=== PATIENT | female | born 1970 | race Caucasian/White ===

== ENCOUNTER 2019-07-15 19:32 | Emergency (ER) | payer SELFPAY ==
--- NOTE | 2019-07-15 20:33 | RAD ---
PORTABLE CHEST: 07/15/19 HISTORY: Chest pain. Heart size is within normal limits for portable technique. Slightly increased parenchymal density in the left lung is probably just overlying soft tissue. If there is any reason to suspect any infiltra te, a PA and lateral chest film may be helpful in assessment. IMPRESSION: Minimally increased markings over the left mid lung field. I suspect that this is just overlying soft tissue. Less likely some early infiltrative lung change. Clinical correlation recommended. POS: SAMANHTA
[2019-07-15 20:50] LABS: #Basophils 0.1 thou/uL (0.0-0.2); #Eosinphils 0.3 thou/uL (0.0-0.7); #Monocytes 0.5 thou/uL (0.11-0.59); %Basophils 0.7 % (0.0-1.0); %Eosinophils 3.2 % (0.0-10.0); %Lymphocytes 20.1 % (21.0-51.0); %Monocytes 5.3 % (0.0-10.0); %Neutrophils 70.7 % (42.0-75.0); Hemoglobin 13.4 g/dL (12.0-16.0); Mean Corpuscular HGB CONC 32.3 g/dL (32.0-36.0); Mean Corpuscular Hemoglobin 26.6 pg (27.0-31.0); Mean Corpuscular Volume 82.2 fL (78.0-98.0); Platelet Count 325 thou/uL (130-400); RBC Distribution Width 14.2 % (11.5-14.5); Red Blood Cell (RBC) Count 5.06 mill/uL (4.20-5.40); White Blood Cell (WBC) Count 9.9 thou/uL (4.8-10.8)
[2019-07-15 21:11] LABS: ALT (SGPT) 19 U/L (8-55); AST (SGOT) 34 U/L (5-34); Albumin 3.7 g/dL (3.5-5.0); Alkaline Phosphatase 71 U/L (40-110); Anion Gap 13 mmol/L (10-20); BUN (Urea Nitrogen) 10 mg/dL (7.0-18.7); Bilirubin, Total 0.5 mg/dL (0.2-1.2); Calc. Creatinine Clearance 0 mL/min (70-130); Calcium 9.1 mg/dL (7.8-10.44); Carbon Dioxide 28 mmol/L (22-29); Chloride 101 mmol/L (98-107); Estimated GFR-MDRD Greater than 90; Globulin 4.5 g/dL (2.4-3.5); Glucose 171 mg/dL (70-105); Potassium 4.7 mmol/L (3.5-5.1); Protein, Total 8.2 g/dL (6.0-8.3); Sodium 137 mmol/L (136-145)
[2019-07-15 22:04] LABS: Free T4 (Free Thyroxine) 1.11 ng/dL (0.70-1.48); Thyroid Stimulating Hormone 0.8982 uIU/mL (0.35-4.94)
[2019-07-15] MEDS ORDERED: Ondansetron PF 4 MG/2 ML Vial ONE (22:12)
[2019-07-15] MEDS ORDERED: Ketorolac Tromethamine 30 MG/ML VIAL ONE (22:33)
[2019-07-15] MEDS ORDERED: Acetaminophen 500 MG TAB ONE (22:33)
== END 2019-07-15 23:25 ==
LOC: ERS 19:32
DX: M54.2 Cervicalgia (principal); R11.0 Nausea; E11.9 Type 2 diabetes mellitus without complications; I10 Essential (primary) hypertension; M79.7 Fibromyalgia; M19.90 Unspecified osteoarthritis, unspecified site; M06.9 Rheumatoid arthritis, unspecified; G43.909 Migraine, unspecified, not intractable, without status migrainosus; J45.909 Unspecified asthma, uncomplicated; F32.9 Major depressive disorder, single episode, unspecified; Z79.4 Long term (current) use of insulin
CPT/HCPCS: 71045; 80053; 83735; 84439; 84443; 84484; 85025; 93005; 96361; 96374; 96375; J1885; J2405

== ENCOUNTER 2019-08-16 01:25 | Observation (INO) | payer MEDICAID ==
[2019-08-16] MEDS ORDERED: Aspirin Chewable 81 MG TAB ONE (03:01)
[2019-08-16] MEDS ORDERED: Ondansetron PF 4 MG/2 ML Vial IVP PRN (16:14)
[2019-08-16] MEDS ORDERED: Ondansetron ODT 4 MG TAB SL PRN (16:14)
[2019-08-16] MEDS ORDERED: Acetaminophen 325 MG TAB PO PRN (16:14)
[2019-08-16] MEDS ORDERED: Sodium Chloride 0.9% 1,000 ML IV SCH ×2 (16:14→20:30)
[2019-08-16] MEDS ORDERED: HYDROcodone/Acetaminophen 5/325 mg Tablet PO PRN ×2 (16:14)
[2019-08-16] MEDS ORDERED: Heparin 5,000 UNITS/ML VIAL SC SCH (16:30)
[2019-08-16] MEDS ORDERED: Piperacillin/Tazobactam 4.5 GM in Sodium Chloride 0.9% 100 ML IVPB SCH (18:00)
[2019-08-16] MEDS: Sodium Chloride 0.9% 1,000 ML IV SCH (18:12)
[2019-08-16 18:17] VITALS: BMI 44.4
[2019-08-16] MEDS ORDERED: METFORMIN HCL PO SCH (21:00)
[2019-08-16] MEDS: Heparin 5,000 UNITS/ML VIAL SC SCH (21:21)
[2019-08-16] MEDS: Gabapentin 300 MG CAP PO SCH (21:22)
[2019-08-16] MEDS: Acetaminophen 500 MG TAB PO PRN (21:23)
[2019-08-16] MEDS: MEROPENEM 1 GM/50 ML 1 GM in Premix Bag 1 BAG IVPB SCH (21:23)
[2019-08-16] MEDS: Senokot S 8.6-50 MG TAB PO SCH (21:24)
[2019-08-17 04:50] LABS: #Basophils 0.1 thou/uL (0.0-0.2); #Eosinphils 0.3 thou/uL (0.0-0.7); #Lymphocytes 1.8 thou/uL (1.20-3.40); #Monocytes 0.4 thou/uL (0.11-0.59); %Eosinophils 4.5 % (0.0-10.0); %Lymphocytes 28.1 % (21.0-51.0); %Neutrophils 60.4 % (42.0-75.0); Hemoglobin 12.1 g/dL (12.0-16.0); Mean Corpuscular HGB CONC 31.4 g/dL (32.0-36.0); Mean Corpuscular Hemoglobin 26.2 pg (27.0-31.0); Mean Corpuscular Volume 83.7 fL (78.0-98.0); Mean Platelet Volume 7.5 fL (7.4-10.4); Platelet Count 299 thou/uL (130-400); RBC Distribution Width 14.3 % (11.5-14.5); White Blood Cell (WBC) Count 6.5 thou/uL (4.8-10.8)
[2019-08-17 05:07] LABS: Anion Gap 10 mmol/L (10-20); BUN (Urea Nitrogen) 7 mg/dL (7.0-18.7); Calc. Creatinine Clearance 258 mL/min (70-130); Calcium 8.6 mg/dL (7.8-10.44); Carbon Dioxide 25 mmol/L (22-29); Chloride 104 mmol/L (98-107); Estimated GFR-MDRD Greater than 90; Glucose 166 mg/dL (70-105); Potassium 4.2 mmol/L (3.5-5.1); Sodium 135 mmol/L (136-145)
[2019-08-17] MEDS: MEROPENEM 1 GM/50 ML 1 GM in Premix Bag 1 BAG IVPB SCH ×2 (07:50→14:57)
[2019-08-17] MEDS: Acetaminophen 500 MG TAB PO PRN ×2 (07:52→17:01)
[2019-08-17] MEDS ORDERED: Labetalol HCl 100 MG/20 ML VIAL SLOW IVP PRN (07:57)
[2019-08-17] MEDS: Sodium Chloride 0.9% 1,000 ML IV SCH (08:27)
--- NOTE | 2019-08-17 08:30 | HP ---
HISTORY OF PRESENT ILLNESS: Ms. Noble is a 49-year-old long-term resident with a history of type 2 diabetes, thyroid goiter, hypertension, rheumatoid arthritis, regina syndrome and Scheuermann disease, presented to the hospital for generalized weakness for the past day. Per the patient, she was trying to get off bed in the long-term, but could not move either of her extremities and could barely talk, and the symptoms have resolved only after arriving to the ER and only partially resolved. she could talk again, but her extremities remained weak. The patient also endorsed fever, chills, night sweats for the past week. She denied weight loss, neck stiffness, sinus congestion, throat pain, chest pain, pleuritic pain, shortness of breath, abdominal pain, diarrhea, dysuria, burning on urination, increased urinary frequency, focal weakness, facial droop, blood loss, recent travel, or proximity to sick contacts. EMERGENCY COURSE: In the ED, the patient was found to have a positive urinalysis and be hypotensive. The patient's sensory exam was diffuse weakness, and she was admitted to the stroke unit. PAST MEDICAL HISTORY: regina syndrome, Scheuermann disease, goiter, type 2 diabetes, recurrent urinary tract infections, hypertension, osteoarthritis, fibromyalgia, rheumatoid arthritis, migraines. PAST SURGICAL HISTORY: Cholecystectomy, thyroidectomy that was partial. PSYCHIATRIC HISTORY: Depression. SOCIAL HISTORY: No alcohol, smoking, or recreational drug use. Lives in long- term long-term, [facility]. FAMILY HISTORY: Remarkable for hypertension, diabetes. ALLERGIES: INCLUDE ALLERGY TO PENICILLIN, WHICH THE PATIENT DESCRIBES HER JAW LOCKING UP, MEPERIDINE, MORPHINE, AND TRAMADOL. HOME MEDICATIONS: Include, 1. Duloxetine. 2. Pantoprazole. 3. Acetaminophen. 4. Loperamide. 5. DuoNeb. 6. Diclofenac. 7. Insulin aspart. 8. Gabapentin. 9. Metformin. 10. Glyburide. REVIEW OF SYSTEMS: GENERAL: No weight loss. No difficulty sleeping. Positive for fatigue that is chronic, diffuse weakness, chills, and night sweats. SKIN: Denies any rashes, itching, or dryness. HEAD: Denies current headaches. EARS: Denies drainage. EYES: Denies redness or drainage. NOSE: No stuffiness. No sinus pain. THROAT: Endorses swelling of the throat. Denies recent bleeding or tooth ache. NECK: Endorses swelling of the throat. No stiffness. No lumps. RESPIRATORY: Denies cough, sputum production, or shortness of breath. Denies pleuritic chest pain. CARDIOVASCULAR: Denies chest pressure, palpitations, worsening lower or upper extremity swelling. GASTROINTESTINAL: Endorses mild swallowing difficulties. Denies heartburn, constipation, diarrhea, or rectal bleeding. URINARY: Denies increased frequency, urgency, burning, pain, or blood in the urine. NEUROLOGIC: Endorses diffuse weakness and numbness; however, cannot localize. HEMATOLOGIC: No recent bleeding. No easy bleeding. PSYCHIATRIC: Endorses nervousness and depression. PHYSICAL EXAMINATION: VITAL SIGNS: Unremarkable with exception of hypertension. GENERAL: Morbidly obese. Lying in bed in mild distress due to weakness. HEENT: Left submandibular lymphadenopathy as well as diffusely enlarged nontender goiter. No other head or neck lymphadenopathy. THROAT: Not erythematous or draining pus. CARDIAC: Regular rate and rhythm. No murmurs. No gallops. LUNGS: Clear to auscultation bilaterally. No rales, wheezing, or rhonchi; however, diffusely reduced breath sounds throughout, likely due to body habitus. ABDOMEN: Nontender, nondistended. Normal bowel sounds. EXTREMITIES: Mild bilateral lower extremity edema up to knee level. PSYCHIATRIC: Appears moderately anxious. Alert and oriented x3. LABORATORY AND DIAGNOSTIC DATA: Labs and imaging were reviewed by me. ASSESSMENT AND PLAN: Ms. Noble is a 49-year-old female with a medical history of recurrent urinary tract infections, who presents with disuse weakness, fever , and chills due to complicated urinary tract infection. 1. Complicated urinary tract infection. 2. qSOFA score is 0/3. Therefore, not septic. 3. Urinalysis positive. 4. Cultures are pending. 5. Chest x-ray shows no acute cardiopulmonary process. 6. Considering the nonfocal nature of the weakness and subacute presentation, unlikely to be related to a stroke. In addition to that imaging in the hospital for which the patient came including CT angiography showed no hemodynamic significant stenosis nor signs of acute ischemia. However, the imaging showed a mediastinal mass as well as diffuse thyromegaly. however, findings did show soft tissue density in the mediastinum, likely representing mediastinal lymphadenopathy and diffuse enlarged thyroid gland. PLAN: 1. The patient was placed in a Damon due to urinary retention on presentation. a. Considering the patient is from a long-term and with recurrent urinary tract infections, she is at high risk for extended-spectrum beta-lactamase urinary tract infection. Despite her reported penicillin allergy, which appears to be unrelated to angioedema, we will start the patient continues on meropenem and monitor closely for signs of allergies. b. Upon receiving urine culture susceptibilities, we will change the antibiotics to suit susceptibilities. c. In addition to that, we will send for a respiratory viral panel. 2. Thyromegaly. a. On physical exam, diffusely enlarged thyroid, which the patient endorses has been a chronic issue. Nontender. b. Most recent thyroid studies show normal levels of TSH and free T4. c. Plan, we will attempt to obtain records regarding thyroid disease prior to proceeding with additional studies. 3. Mediastinal masses. a. Prior imaging report, likely lymphadenopathy. b. Plan, we will attempt to obtain older imaging records prior to additional workup of the mass. 4. Type 2 diabetes. a. The patient is taking metformin, glyburide, and insulin at home. b. We will renew home medications and monitor. 5. Depression. a. We will continue home antidepression medication. 6. Disposition and prophylaxis. a. Resuscitation status, full code. b. DVT prophylaxis. Heparin 5000 units q.8 subcutaneously. c. GI prophylaxis. The patient is being treated for GERD with pantoprazole. Job ID: [id number] MTDD
[2019-08-17] MEDS: DULoxetine 60 MG CAP PO SCH (09:16)
[2019-08-17] MEDS: Heparin 5,000 UNITS/ML VIAL SC SCH ×3 (09:16→21:48)
[2019-08-17] MEDS: Gabapentin 300 MG CAP PO SCH ×3 (09:17→21:48)
[2019-08-17] MEDS: Senokot S 8.6-50 MG TAB PO SCH ×3 (09:17→21:49)
[2019-08-17] MEDS: Amlodipine 10 MG TAB PO SCH (09:18)
[2019-08-17] MEDS: glyBURIDE 5 MG TAB PO SCH (09:22)
[2019-08-17] MEDS ORDERED: Insulin Regular 300 UNITS/3 ML VIAL SC PRN (13:19)
--- NOTE | 2019-08-17 20:01 | PDOC.HOSPP ---
- Subjective Encounter Date: 08/17/19 Encounter Time: 09:00 Subjective: no overnight events. This morning, patient feels better overall, her strength is better, and she has no dysarthria or dysphagia. - Objective Vital Signs & Weight: Vital Signs (12 hours) Temp Pulse Pulse Resp BP BP BP 08/17/19 19:43 98.5 F 100 16 126/78 08/17/19 18:39 101 H 18 08/17/19 16:00 98.5 F 99 16 143/91 H 08/17/19 11:58 97.9 F 103 H 16 146/90 H 08/17/19 10:00 147/80 H 08/17/19 09:50 86 147/80 H 08/17/19 09:49 86 147/80 H 08/17/19 09:18 91 185/88 H 08/17/19 08:36 185/88 H Pulse Ox 08/17/19 19:43 96 08/17/19 18:39 99 08/17/19 16:00 94 L 08/17/19 11:58 96 08/17/19 10:00 08/17/19 09:50 08/17/19 09:49 08/17/19 09:18 08/17/19 08:36 Weight Admit Weight 301 lb Weight 301 lb I&O: 08/16/19 08/17/19 08/18/19 06:59 06:59 06:59 Intake Total 1490 900 Output Total 1400 1150 Balance 90 -250 Result Diagrams: 08/17/19 04:34 08/17/19 04:34 Additional Labs: Accuchecks 08/17/19 17:09 POC Glucose 129 H Hospitalist ROS - Review of Systems Constitutional: reports: weakness. denies: fever, chills, sweats Respiratory: denies: cough, dry, shortness of breath, hemoptysis, SOB with excertion, pleuritic pain, sputum, wheezing, other Cardiovascular: denies: chest pain, palpitations, orthopnea, paroxysmal noc. dyspnea, edema, light headedness, other Gastrointestinal: denies: nausea, vomiting, abdominal pain, diarrhea, constipation, melena, hematochezia, other Genitourinary: denies: dysuria, frequency, incontinence, hematuria, retention, other - Medication Medications: Active Medications Generic Name Dose Route Start Last Admin Trade Name Freq PRN Reason Stop Dose Admin Acetaminophen 1,000 mg 08/16/19 19:03 08/17/19 17:01 Tylenol PO 1,000 mg Q8H PRN Administration Pain Albuterol/Ipratropium 3 ml 08/17/19 06:30 08/17/19 18:39 Duoneb NEB 3 ml TID-RT WALTER Administration Amlodipine Besylate 10 mg 08/17/19 09:00 08/17/19 09:18 Norvasc PO 10 mg DAILY WALTER Administration Duloxetine HCl 60 mg 08/17/19 09:00 08/17/19 09:16 Cymbalta PO 60 mg DAILY WALTER Administration Gabapentin 300 mg 08/16/19 21:00 08/17/19 14:56 Neurontin PO 300 mg TID WALTER Administration Glyburide 5 mg 08/17/19 07:30 08/17/19 09:22 Diabeta PO 5 mg DAILY-AC WALTER Administration Heparin Sodium (Porcine) 5,000 units 08/16/19 21:00 08/17/19 14:57 Heparin SC Not Given TID WALTER Meropenem 1 gm/ Device 50 mls @ 100 mls/hr 08/16/19 22:00 08/17/19 14:57 IVPB 50 mls Q8HR WALTER Administration Pantoprazole Sodium 40 mg 08/17/19 09:00 08/17/19 09:17 Protonix PO Not Given DAILY WALTER Senna/Docusate Sodium 2 tab 08/16/19 21:00 08/17/19 09:23 Senokot S PO Not Given BID WALTER - Exam General Appearance: NAD, awake alert Neck: no JVD Heart: RRR, no murmur, no gallops Respiratory: CTAB, no wheezes, no rales, no ronchi Gastrointestinal: soft, non-tender, non-distended, normal bowel sounds Extremities: no edema Psychiatric: normal affect, normal behavior, A&O x 3 Hosp A/P - Plan 1. Complicated urinary tract infection. qSOFA score is 0/3. Therefore, not septic. Urinalysis positive. BCx NTD1 urine cultures not sent patient clinically improving, HD stable, and afebrile since admission 2. urinary retention -gong removed and patient voiding spontaneously without high residuals PLAN: 1. considering mild presentation and nonspecific symptoms, lack of urine culture , will transition to ciprofloxacin as inpatient and continue to follow 1. a. Resuscitation status, full code. b. DVT prophylaxis. Heparin 5000 units q.8 subcutaneously. c. GI prophylaxis. The patient is being treated for GERD with pantoprazole.
[2019-08-18] MEDS: Acetaminophen 500 MG TAB PO PRN ×2 (00:52→09:37)
[2019-08-18 05:15] LABS: #Basophils 0.1 thou/uL (0.0-0.2); #Eosinphils 0.3 thou/uL (0.0-0.7); #Lymphocytes 1.9 thou/uL (1.20-3.40); #Monocytes 0.5 thou/uL (0.11-0.59); #Neutrophils 4.5 thou/uL (1.40-6.50); %Basophils 0.9 % (0.0-1.0); %Eosinophils 3.6 % (0.0-10.0); %Lymphocytes 26.8 % (21.0-51.0); %Monocytes 6.2 % (0.0-10.0); %Neutrophils 62.5 % (42.0-75.0); Hemoglobin 11.8 g/dL (12.0-16.0); Mean Corpuscular HGB CONC 31.1 g/dL (32.0-36.0); Mean Corpuscular Hemoglobin 26.1 pg (27.0-31.0); Mean Platelet Volume 7.4 fL (7.4-10.4); Platelet Count 298 thou/uL (130-400); RBC Distribution Width 14.1 % (11.5-14.5); White Blood Cell (WBC) Count 7.2 thou/uL (4.8-10.8)
[2019-08-18 05:40] LABS: Anion Gap 10 mmol/L (10-20); BUN (Urea Nitrogen) 8 mg/dL (7.0-18.7); Calc. Creatinine Clearance 246 mL/min (70-130); Calcium 8.9 mg/dL (7.8-10.44); Carbon Dioxide 29 mmol/L (22-29); Chloride 102 mmol/L (98-107); Estimated GFR-MDRD Greater than 90; Glucose 162 mg/dL (70-105); Potassium 4.2 mmol/L (3.5-5.1); Sodium 137 mmol/L (136-145)
[2019-08-18] MEDS ORDERED: Ciprofloxacin 500 MG TAB PO SCH (06:00)
[2019-08-18] MEDS: glyBURIDE 5 MG TAB PO SCH (06:34)
[2019-08-18] MEDS: metFORMIN 500 MG TAB PO SCH ×2 (09:37→16:24)
[2019-08-18] MEDS: Gabapentin 300 MG CAP PO SCH ×2 (09:37→16:24)
[2019-08-18] MEDS: Amlodipine 10 MG TAB PO SCH (09:37)
[2019-08-18] MEDS: DULoxetine 60 MG CAP PO SCH (09:37)
[2019-08-18] MEDS: Senokot S 8.6-50 MG TAB PO SCH (09:38)
[2019-08-18] MEDS: Heparin 5,000 UNITS/ML VIAL SC SCH ×2 (09:38→16:24)
[2019-08-18 11:43] VITALS: TEMP 98.4
[2019-08-18 16:50] VITALS: BP 156/95
--- NOTE | 2019-08-19 12:05 | DIS ---
DATE OF ADMISSION: 08/16/2019 DATE OF DISCHARGE: 08/18/2019 HOSPITAL COURSE: Ms. Noble is a 49-year-old [facility] resident with history of type 2 diabetes, thyroid goiter, hypertension, rheumatoid arthritis, Samantha syndrome, and Scheuermann disease, presented to the hospital for generalized weakness. She was diagnosed with complicated urinary tract infection and urine cultures grew E coli. The patient was educated regarding habits that can prevent her from recurrence of urinary tract infection that she had in the past and was treated with antibiotics based on the susceptibilities of the culture. The patient was discharged to the [facility] hemodynamically stable and is feeling at baseline. PHYSICAL EXAMINATION: VITAL SIGNS: On the day of discharge were unremarkable. GENERAL: She is in no apparent distress. Alert and oriented x3. Morbidly obese. NECK: Diffusely enlarged thyroid, which per the patient is chronic. CARDIAC: Regular rate and rhythm. No murmurs or gallops. LUNGS: Clear to auscultation bilaterally. No rales, wheezing, or rhonchi. However, there were diffusely reduced breath sounds throughout the lungs, likely due to body habitus. ABDOMEN: Nontender, nondistended. Normal bowel sounds. No suprapubic tenderness. I could not appreciate a full bladder. EXTREMITIES: Mild bilateral lower extremity edema up to the knee level. PSYCHIATRIC: Appropriate mood and affect. Alert and oriented x3. ASSESSMENT AND PLAN: Ms. Noble is a 49-year-old female with a medical history of recurrent urinary tract infections, who presented with a complicated urinary tract infection resulting in generalized weakness, fevers and chills. Complicated urinary tract infection: The patient's presentation was consistent with complicated urinary tract infection. However, she was not septic based on qSOFA score of 0/3. Urine culture grew Escherichia coli that was susceptible to fluoroquinolones, on which the patient was discharged. During the workup for her generalized weakness, studies for stroke were done including CT angiography, which showed no hemodynamic significant stenosis. No signs of acute ischemia. However, the imaging showed a mediastinal mass as well as diffuse thyromegaly, which were present on previous imaging, and the patient was made aware of these findings and was requested to make an appointment with an poultry pinner to further assess thyroid disease. Job ID: [id number]
== END 2019-08-18 17:25 ==
LOC: ERS 01:25 → ERHOLD 02:52 → 2SE 02:52
PROVIDERS: ADMIT Internal Medicine; ATTEND Internal Medicine
DX: N39.0 Urinary tract infection, site not specified (principal); B96.20 Unspecified Escherichia coli [E. coli] as the cause of diseases classified elsewhere; I10 Essential (primary) hypertension; E11.9 Type 2 diabetes mellitus without complications; E04.9 Nontoxic goiter, unspecified; F32.9 Major depressive disorder, single episode, unspecified; K21.9 Gastro-esophageal reflux disease without esophagitis; M06.9 Rheumatoid arthritis, unspecified; M42.00 Juvenile osteochondrosis of spine, site unspecified; Z79.4 Long term (current) use of insulin; Z79.899 Other long term (current) drug therapy; Z88.0 Allergy status to penicillin; Z88.5 Allergy status to narcotic agent; Z91.018 Allergy to other foods
CPT/HCPCS: 36415; 36416; 80048; 83735; 85025; 87040; 87633; 96361; 96365; 96372; 96376; 99285; G0378; J1644; J2185; J7620